=== PATIENT | female | born 1960 | race Caucasian/White ===

== ENCOUNTER 2018-04-23 06:15 | Day surgery (SDC) | payer OTHER ==
[~2018-04-23] VITALS: Ht 167.6 cm; Wt 85.3 kg
[~2018-04-23 06:15] MED LIST: ACYC800; ALBU90OI6; Antivert25 MG PO; CYCL10 PO; DICL75ER; HYDACE10B PO; IBUP800 PO; KETO.5OPSO BOTHEYES; LATUDA20 MG; MAGIC MOUTHWASH; Mucinex600 MG PO; NAPR500 PO; NORT10 PO; Naprosyn500 MG PO; Omeprazole20 M1; SERT50 PO; SULI150 PO; TRAZ100; Zofran Odt4 MG SL
[2018-04-23] MEDS ORDERED: REXULTI0.25 MG PO (06:47)
== END 2018-04-23 08:33 | disposition home or self-care (01) ==
LOC: ORSCSDS 06:15
PROVIDERS: Orthopaedic Surgery
PROC: 01N50ZZ Release Median Nerve, Open Approach (ICD-10-PCS; principal; 2018-04-23 07:30)
DX: G56.02 Carpal tunnel syndrome, left upper limb (principal); F31.9 Bipolar disorder, unspecified; B19.20 Unspecified viral hepatitis C without hepatic coma; K21.9 Gastro-esophageal reflux disease without esophagitis; Z87.891 Personal history of nicotine dependence; Z79.899 Other long term (current) drug therapy
CPT/HCPCS: J2250; J3010; J7120

== ENCOUNTER → 2018-12-16 | Outpatient (CLI) | payer OTHER ==
[~2018-12-16] MED LIST changes: +REXULTI0.25 MG PO
[2018-12-18 15:06] LABS: HPV 16 Negative (Negative); HPV 18 Negative (Negative); HPV OTHER HR TYPES Negative (Negative)
== END | disposition home or self-care (01) ==
LOC: LAB 12:16 → LAB SHORT 12:16
PROVIDERS: Nurse Practitioner Family
DX: Z01.419 Encounter for gynecological examination (general) (routine) without abnormal findings (principal)
CPT/HCPCS: 87624; G0123

== ENCOUNTER → 2019-02-28 | Outpatient (CLI) | payer OTHER ==
[2019-02-28 16:17] LABS: Adenovirus F 40/41 Not Detected (NOT DETECT); Astrovirus Not Detected (NOT DETECT); Campylobacter Sp Not Detected (NOT DETECT); Cryptosporidium Not Detected (NOT DETECT); Cyclospora Cayetanensis Not Detected (NOT DETECT); E. Coli O157 Not Detected (NOT DETECT); Entamoeba Histolytica Not Detected (NOT DETECT); Enteroaggregative E. coli-EAEC Not Detected (NOT DETECT); Enteropathogenic E. coli-EPEC Not Detected (NOT DETECT); Enterotoxigenic E. coli-ETEC Not Detected (NOT DETECT); Giardia Lamblia Not Detected (NOT DETECT); Norovirus GI/GII Not Detected (NOT DETECT); Plesiomonas Shigelloides Not Detected (NOT DETECT); Rotavirus A Not Detected (NOT DETECT); Salmonella Sp Not Detected (NOT DETECT); Sapovirus Not Detected (NOT DETECT); Shiga Toxin-prod E. coli-STEC Not Detected (NOT DETECT); Shigella/Enteroin E. coli-EIEC Not Detected (NOT DETECT); Vibrio Cholerae Not Detected (NOT DETECT); Vibrio Sp Not Detected (NOT DETECT); Yersinia Enterocolitica Not Detected (NOT DETECT)
== END | disposition home or self-care (01) ==
LOC: LAB 14:44 → LAB SHORT 14:44
PROVIDERS: General Practice
DX: R19.7 Diarrhea, unspecified (principal)
CPT/HCPCS: 0097U; 80053; 83690; 85025

== ENCOUNTER 2020-06-24 08:28 | Day surgery (SDC) | payer OTHER ==
[~2020-06-24] VITALS: Ht 167.6 cm; Wt 97.7 kg
[~2020-06-24 08:28] MED LIST changes: +ALBU90OI6 INH; +FLUT.05NI; +OMEP20ER PO; +ZYRTEC10 M1 PO
--- NOTE | 2020-06-24 09:27 | NUR ---
06/24/20 0927 TULIO DE DIOS ONE UNSUCCESFUL BY MA IN RIGHT HAND SECOND UNSUCCESSFUL BY MA IN LEFT HAND RN SUCCESSFUL IN LEFT WRIST PT TOW
--- NOTE | 2020-06-24 11:26 | NUR ---
06/24/20 Justin6 Livia Mejia DRINKS OFFERED MULTIPLE TIMES. PT DECLINES NEED FOR DRINK AT THIS TIME. VSS.
--- NOTE | 2020-06-24 11:28 | NUR ---
06/24/20 1128 Livia Mejia 3 POLYPS IN THE SIGMOID COLON. [address] ATIYA JONES.
== END 2020-06-24 11:24 | disposition home or self-care (01) ==
LOC: ORSCSDS 08:28
PROVIDERS: Student in an Organized Health Care Education/Training Program
PROC: 0DB68ZX Excision of Stomach, Via Natural or Artificial Opening Endoscopic, Diagnostic (ICD-10-PCS; principal; 2020-06-24 10:15)
PROC: 0DBN8ZX Excision of Sigmoid Colon, Via Natural or Artificial Opening Endoscopic, Diagnostic (ICD-10-PCS; principal; 2020-06-24 10:15)
PROC: 0DB98ZX Excision of Duodenum, Via Natural or Artificial Opening Endoscopic, Diagnostic (ICD-10-PCS; principal; 2020-06-24 10:15)
PROC: 0DBE8ZX Excision of Large Intestine, Via Natural or Artificial Opening Endoscopic, Diagnostic (ICD-10-PCS; principal; 2020-06-24 10:15)
DX: R19.7 Diarrhea, unspecified (principal); R10.13 Epigastric pain; Z80.0 Family history of malignant neoplasm of digestive organs; K31.7 Polyp of stomach and duodenum; K29.80 Duodenitis without bleeding; D12.2 Benign neoplasm of ascending colon; K63.5 Polyp of colon; K57.30 Diverticulosis of large intestine without perforation or abscess without bleeding; K52.9 Noninfective gastroenteritis and colitis, unspecified; B19.20 Unspecified viral hepatitis C without hepatic coma; Z87.891 Personal history of nicotine dependence; Z79.899 Other long term (current) drug therapy
CPT/HCPCS: 88305; 88341; 88342; J2704; J7120

== ENCOUNTER 2022-06-01 08:14 | Day surgery (SDC) | payer OTHER ==
[~2022-06-01] VITALS: Ht 167.6 cm; Wt 84.7 kg
--- NOTE | 2022-06-01 09:03 | NUR ---
History, Chart, Medications and Allergies reviewed before start of procedure. Lungs clear T/O to Auscultation. Patient confirms NPO status and agrees with scheduled surgery. Pre-Op teaching done. Pt verbalizes understanding. Patient reports completing Chlorhexadine shower X2 prior to admission to hospital.
[2022-06-01] MEDS ORDERED: Percocet 5-3251 EACH PO (14:19)
[2022-06-01 15:06] LABS: BASOPHILS ABSOLUTE AUTO 0.03 K/mm3 (0.00-0.23); BASOPHILS PERCENT AUTO 0 % (0-2); EOSINOPHILS PERCENT AUTO 0 % (0-6); Hematocrit 38.7 % (33.0-51.0); Hemoglobin 13.1 g/dL (11.5-16.0); IMMATURE GRAN ABSOLUTE AUTO 0.04 K/mm3 (0.00-0.10); IMMATURE GRAN PERCENT AUTO 0 % (0-1); LYMPHOCYTES ABSOLUTE AUTO 0.81 K/mm3 (0.84-5.20); LYMPHOCYTES PERCENT AUTO 7 % (21-46); MONOCYTES PERCENT AUTO 2 % (4-13); Mean Corpuscular HGB Conc 33.9 g/dL (31.5-36.5); Mean Corpuscular Volume 86 fL (80-100); Mean Platelet Volume 8.9 fL (9.1-12.4); NEUTROPHILS ABSOLUTE AUTO 11.21 K/mm3 (1.96-9.15); NEUTROPHILS PERCENT AUTO 91 % (41-73); Platelet Count 229 K/mm3 (150-400); RDW Coefficient Variation 12.7 % (11.7-14.2); RDW Standard Deviation 39.7 fL (35.1-46.3); Red Blood Cell Count 4.52 M/mm3 (3.80-5.20); White Blood Cell Count 12.29 K/mm3 (4.00-11.30)
--- NOTE | 2022-06-01 15:49 | NUR ---
DISCHARGE INSTRUCTIONS REVIEWED AND SIGNED. QUESTIONS ANSWERED. PT PAIN WELL CONTROLLED, PLAN TO MEDICATE PRIOR TO DISCHARGE SHE CANNOT GET RX FILLED BEFORE DISCHARGE. WAITING FOR RIDE TO COME. PT TOLERATING PO MED, FOOD AND FLUIDS WELL, AMBULATING WITHOUT ISSUES.
[2022-06-01] MEDS ORDERED: MOTRIN IB200 MG PO (15:52)
--- NOTE | 2022-06-01 16:26 | NUR ---
PT DISCHARGED TO HOME
== END 2022-06-01 16:25 | disposition home or self-care (01) ==
LOC: ORSCMMR 08:14 → ORD 10:00 → ORSCMMR 10:00 → BC 12:04 → ORSCMMR 16:25
PROVIDERS: Obstetrics & Gynecology
PROC: 0UT9FZZ Resection of Uterus, Via Natural or Artificial Opening With Percutaneous Endoscopic Assistance (ICD-10-PCS; principal; 2022-06-01 10:00)
DX: N95.0 Postmenopausal bleeding (principal); R93.89 Abnormal findings on diagnostic imaging of other specified body structures; Z80.8 Family history of malignant neoplasm of other organs or systems; K21.9 Gastro-esophageal reflux disease without esophagitis; B19.20 Unspecified viral hepatitis C without hepatic coma; G89.29 Other chronic pain; J44.9 Chronic obstructive pulmonary disease, unspecified; J45.909 Unspecified asthma, uncomplicated; Z87.891 Personal history of nicotine dependence; Z79.51 Long term (current) use of inhaled steroids; Z79.899 Other long term (current) drug therapy
CPT/HCPCS: 36415; 85025; 88307; A9270; J0171; J0690; J1100; J1885; J2250; J2405; J2704; J3010; J7120

== ENCOUNTER 2023-01-25 06:13 | Day surgery (SDC) | payer OTHER ==
[~2023-01-25] VITALS: Ht 167.6 cm; Wt 77.3 kg
[2023-01-25] VITALS (13 sets, daily range): BP systolic 112–136; BP diastolic 63–77
[~2023-01-25 06:13] MED LIST changes: +MOTRIN IB200 MG PO; +Percocet 5-3251 EACH PO
--- NOTE | 2023-01-25 06:59 | NUR ---
Ambulatory in Day Surgery History, Chart, Medications and Allergies reviewed before start of procedure. Lungs clear T/O to Auscultation. Pre-Op teaching done. Pt verbalizes understanding.
--- NOTE | 2023-01-25 10:32 | NUR ---
PT ARRIVED TO THE ROOM AT 0945. PT IS ALERT AND ORIENTED. PT REPORTS PAIN IS TOLERABLE AT THIS TIME. PT COMPLAINS OF DISCOMFORT FROM CATHETER. NO VAGINAL BLEEDING OR SPOTTING AT THIS TIME. WILL CONTINUE TO MONITOR.
--- NOTE | 2023-01-25 10:45 | NUR ---
CATHETER REVOVED PT CONTINUED TO REPORT DISCOMFORT FROM CATHETER. PT WAS ASSISTED TO AMBULATE IN THE ROOM. CATHETER WAS REMOVED PER ORDER AFTER PT WAS ABLE TO AMBULATE. PT TOLERATED CATHETER REMOVAL WELL. VAGNIAL PACKING REMAINS IN PLACE, PT EDUCATED THAT SHE MAY CONTINUE TO HAVE SOME DISCOMFORT/PRESSURE R/T VAGINAL PACKING. PT EXPRESSED WITH TO DISCHARGE HOME TODAY. WILL MONITOR UNTIL POST-OP VS ARE COMPLETE THEN PLAN FOR DISCHARGE.
--- NOTE | 2023-01-25 10:59 | NUR ---
PT ARRIVED TO THE ROOM AT 0945. PT REPORTS SORENESS BUT STATES PAIN IS TOLERABLE. PT REPORTS DISCOMFORT/PRESSURE FROM CATHETER. VSS. WILL CONTINUE TO MONITOR.
[2023-01-25] MEDS ORDERED: HYDR1TAB94 PO (11:58)
[2023-01-25 12:28] LABS: BASOPHILS ABSOLUTE AUTO 0.03 K/mm3 (0.00-0.23); BASOPHILS PERCENT AUTO 0 % (0-2); EOSINOPHILS PERCENT AUTO 0 % (0-6); Hematocrit 37.2 % (33.0-51.0); Hemoglobin 13.1 g/dL (11.5-16.0); IMMATURE GRAN ABSOLUTE AUTO 0.03 K/mm3 (0.00-0.10); IMMATURE GRAN PERCENT AUTO 0 % (0-1); LYMPHOCYTES ABSOLUTE AUTO 0.94 K/mm3 (0.84-5.20); LYMPHOCYTES PERCENT AUTO 13 % (21-46); MONOCYTES PERCENT AUTO 1 % (4-13); Mean Corpuscular HGB 29.7 pg (26.0-34.0); Mean Corpuscular HGB Conc 35.2 g/dL (31.5-36.5); Mean Corpuscular Volume 84 fL (80-100); Mean Platelet Volume 8.8 fL (9.1-12.4); NEUTROPHILS ABSOLUTE AUTO 6.05 K/mm3 (1.96-9.15); NEUTROPHILS PERCENT AUTO 85 % (41-73); Platelet Count 230 K/mm3 (150-400); RDW Coefficient Variation 12.4 % (11.7-14.2); RDW Standard Deviation 38.3 fL (35.1-46.3); Red Blood Cell Count 4.41 M/mm3 (3.80-5.20); White Blood Cell Count 7.15 K/mm3 (4.00-11.30)
--- NOTE | 2023-01-25 12:30 | NUR ---
VAGINAL PACKING REMOVED AT 1130. PT TOLERATED WELL.
--- NOTE | 2023-01-25 13:23 | NUR ---
DISCHARGE PT PROVIDED WITH WRITTEN AND VERBAL DISCHARGE INSTRUCTIONS, SHE REPORTED UNDERSTANDING. PT ABLE TO AMBULATE, VOID, TOLERATE PO, VSS AND PAIN MANAGED AT TIME OF DISCHARGE. PT AMBULATED OUT WITHOUT NEED FOR ASSISTANCE. PT REPORTED HER GRANDDAUGHTER WILL PICK HER UP AND TAKE HER HOME, PT STATED SHE WANTED TO WAIT AND THE ENTRANCE FOR HER GRANDDAUGHTER.
== END 2023-01-25 13:20 | disposition home or self-care (01) ==
LOC: ORSCMMR 06:13 → ORD 08:00 → ORSCMMR 08:00 → SURS 10:33 → ORSCMMR 13:20
PROVIDERS: Obstetrics & Gynecology
PROC: 0JQC0ZZ Repair Pelvic Region Subcutaneous Tissue and Fascia, Open Approach (ICD-10-PCS; principal; 2023-01-25 08:00)
DX: N81.11 Cystocele, midline (principal); N95.2 Postmenopausal atrophic vaginitis; N81.6 Rectocele; J44.9 Chronic obstructive pulmonary disease, unspecified; Z87.891 Personal history of nicotine dependence; K21.9 Gastro-esophageal reflux disease without esophagitis; F31.9 Bipolar disorder, unspecified; Z79.899 Other long term (current) drug therapy
CPT/HCPCS: 36415; 85025; A9270; J1885; J2250; J2704; J3010; J7120